=== PATIENT | male | born 1950 | race Caucasian/White ===

== ENCOUNTER 2018-07-20 14:58 | Emergency (ER) | payer MEDICARE ==
[2018-07-20 15:53] LABS: #Eosinphils 0.1 thou/uL (0.0-0.7); #Lymphocytes 0.8 thou/uL (1.20-3.40); #Monocytes 0.4 thou/uL (0.11-0.59); #Neutrophils 3.4 thou/uL (1.40-6.50); %Basophils 0.6 % (0.0-1.0); %Eosinophils 2.7 % (0.0-10.0); %Lymphocytes 16.6 % (21.0-51.0); %Monocytes 7.9 % (0.0-10.0); %Neutrophils 72.2 % (42.0-75.0); Hemoglobin 15.1 g/dL (14.0-18.0); Mean Corpuscular HGB CONC 33.5 g/dL (32.0-36.0); Mean Corpuscular Hemoglobin 34.5 pg (27.0-31.0); Platelet Count 124 thou/uL (130-400); RBC Distribution Width 11.4 % (11.5-14.5); Red Blood Cell (RBC) Count 4.36 mill/uL (4.70-6.10); White Blood Cell (WBC) Count 4.8 thou/uL (4.8-10.8)
[2018-07-20 16:14] LABS: ALT (SGPT) 21 U/L (8-55); AST (SGOT) 23 U/L (5-34); Albumin 2.5 g/dL (3.4-4.8); Alkaline Phosphatase 37 U/L (40-150); Anion Gap 10 mmol/L (10-20); BUN (Urea Nitrogen) 30 mg/dL (8.4-25.7); Bilirubin, Total 0.8 mg/dL (0.2-1.2); Calc. Creatinine Clearance 0 mL/min (70-130); Calcium 8.3 mg/dL (7.8-10.44); Carbon Dioxide 23 mmol/L (23-31); Chloride 111 mmol/L (98-107); Estimated GFR-MDRD 60; Globulin 2.4 g/dL (2.4-3.5); Glucose 84 mg/dL (80-115); Potassium 4.7 mmol/L (3.5-5.1); Protein, Total 4.9 g/dL (5.8-8.1); Sodium 139 mmol/L (136-145)
--- NOTE | 2018-07-20 16:16 | CT ---
HEAD CT WITHOUT CONTRAST: Date: 07/20/18 HISTORY: Nausea and weakness. COMPARISON: None. FINDINGS: There are intracranial stimulators, likely for a patient with a history of Parkinson's disease. Corre late clinically. There is malacic change involving the medial right occipital lobe and left frontal l obe. The remainder of the cerebrum demonstrates preservation of cortical burton-white matter differenti ation. There is no evidence of hydrocephalus. Calvarium is intact. Adequate aeration of the sinuses a nd mastoid air cells. IMPRESSION: No acute intracranial process. POS: [facility]
[2018-07-20 16:18] LABS: Troponin I Less than 0.010 ng/mL (< 0.028)
--- NOTE | 2018-07-20 16:22 | RAD ---
CHEST 2 VIEWS: Date: 07/20/18 HISTORY: Weakness. COMPARISON: None. FINDINGS: Enlarged cardiac silhouette. Pulmonary vessels and hilum are normal. There is blunting of the right c ostophrenic angle. Left costophrenic angle is clear. No consolidation or mass. No pneumothorax or oss eous abnormalities. There is a left-sided transvenous pacemaker lead with projection in the right atrium, right ventricle , and coronary sinus. There are stimulator wires that project over the right aspect of the abdomen, c hest, and inferior neck. IMPRESSION: 1. Cardiomegaly. 2. Small right-sided effusion. POS: [facility]
[2018-07-20 16:25] LABS: CKMB 11.3 ng/mL (0-6.6)
== END 2018-07-20 19:46 | disposition left against medical advice (07) ==
LOC: ERS 14:58
DX: R53.1 Weakness (principal); R42 Dizziness and giddiness; I25.2 Old myocardial infarction; E03.9 Hypothyroidism, unspecified; I10 Essential (primary) hypertension; Z79.899 Other long term (current) drug therapy
CPT/HCPCS: 36415; 70450; 71046; 80053; 82553; 84484; 85025; 93005; 96360